=== PATIENT | male | born 1955 | race Caucasian/White ===

== ENCOUNTER 2016-10-17 12:54 | Emergency (ER) | payer OTHER ==
[~2016-10-17 12:54] MED LIST: GEMFIBROZIL600 MG PO; LOVAZA1 GM PO; PERCOCET 325 MG1 TA2 PO; PRAVACHOL10 MG PO; PRAVASTATIN SOD80 MG PO; PRINIVIL 5MG5 MG PO; ZETIA10 MG PO
[2016-10-17] MEDS ORDERED: DOXYCYCLINE HY100 M2 PO (14:14)
[2016-10-17 14:15] VITALS: BP 130/80
--- NOTE | 2016-10-17 14:16 | ED GENERAL ADULT ---
History of Present Illness General Chief Complaint: Foot or Ankle Injury Stated Complaint: PT HAS A PIECE OF GLASS IN THE LT FOOT Source: patient Exam Limitations: no limitations Vital Signs & Intake/Output Vital Signs & Intake/Output Vital Signs Date Time Temp Pulse Resp B/P B/P Pulse O2 O2 Flow FiO2 Mean Ox Delivery Rate 10/17 1415 97.4 70 20 130/80 98 Room Air 10/17 1325 98 Room Air 10/17 1259 97.3 69 20 134/74 97 Room Air Allergies Coded Allergies: NO KNOWN ALLERGIES (07/14/11) Reconcile Medications Doxycycline Hyclate 100 MG CAPSULE 1 CAP PO BID FB IN FOOT Gemfibrozil 600 MG TABLET 1 TAB PO BID HYPERTRIGLYCERIDEMIA (Reported) [id number]-[id number] Ethyl Esters (Lovaza) 1 GRAM CAPSULE 2 CAP PO BID HYPERTRIGLYCERIDEMIA (Reported) Pravastatin Sodium 80 MG TABLET 1 TAB PO DAILY CHOLESTEROL (Reported) Triage Note: PT PRESENTS TO ER C/O OF LEFT FOOT PAIN. PT STATES SHE HAS A PIECE OF GLASS STUCK IN HIS FOOT. Triage Nurses Notes Reviewed? yes Onset: Abrupt Duration: day(s): Timing: recent history HPI: 10/17/16 1:30 PM 61-year-old man presents to the emergency department for foreign body in the left heel. The patient states that he was walking barefoot and there was broken glass last night and he stepped on a piece and it went into his left heel. His who is a nurse tried to remove it but he still feels a foreign body sensation and pain. The onset of the symptoms were abrupt. The duration was approximately 12 hours prior to arrival. The severity was significant as her symptoms required him to come to the emergency department for care. He has associated pain and foreign body sensation to the left heel. Past History Travel History Traveled to [place] past 21 day No Medical History Any Pertinent Medical History? see below for history Cardiovascular: hyperlipidemia, HTN- off meds for htn Surgical History Surgical History: non-contributory Psychosocial History What is your primary language Turkmen Tobacco Use: Never used Family History Hx Contributory? No Review of Systems Review of Systems Constitutional: Reports: no symptoms. EENTM: Reports: no symptoms. Respiratory: Reports: no symptoms. Cardiovascular: Reports: no symptoms. GI: Reports: no symptoms. Genitourinary: Reports: no symptoms. Musculoskeletal: Reports: no symptoms. Skin: Reports: see HPI. Neurological/Psychological: Reports: no symptoms. Hematologic/Endocrine: Reports: no symptoms. Physical Exam Physical Exam General Appearance: well developed/nourished, alert, awake Head: normal appearance Eyes: Bilateral: normal appearance, PERRL, EOMI. Ears, Nose, Throat: normal ENT inspection Neck: normal inspection Respiratory: no respiratory distress Peripheral Pulses: 4+ dorsalis pedis (L) Back: normal range of motion Extremities: tenderness Neurologic/Psych: no motor/sensory deficits, awake, alert, oriented x 3 Skin: PUNCTURE WOUND LEFT HEEL Core Measures ACS in differential dx? No CVA/TIA Diagnosis: No Severe Sepsis Present: No Septic Shock Present: No Progress Differential Diagnoses I considered the following diagnoses in my evaluation of the patient: [Foreign body, puncture wound] Plan of Care: Warm soaks. Antibiotics as directed. Follow-up with the shuttle truck driver or call Dr. Rosenthal if any symptoms remain in 7-10 days. Initial ED EKG: none Departure Departure Disposition: HOME OR SELF CARE Condition: Stable Clinical Impression Primary Impression: Foreign body in left foot Secondary Impressions: Puncture wound Referrals: KASSIDY ROBLEDO,BREANA Handy (PCP/Family) Additional Instructions: WARM SOAKS TAKE THE ANTIBIOTICS CALL DR ROSENTHAL OR FOLLOW UP WITH THE SERVICE RIG OPERATOR IF NOT ALL BETTER IN 10 DAYS [phone] Departure Forms: Customer Survey General Discharge Information Prescriptions: Current Visit Scripts Doxycycline Hyclate 1 CAP PO BID #14 CAP Comments Procedure-foreign body removal left heel Ultrasound was first performed using the high-frequency probe. No foreign body was visualized. There was a dime sized area of excoriation at the puncture wound entrance site. The patient stated this was where the foreign body was felt. The area was cleaned with Betadine. The area was infiltrated with 3 mL of lidocaine 1% without epinephrine. The overlying scab was removed, small fragments were returned with the removal of the scab. The underlying area was probed with a needle and visually explored , the superficial epidermis and subcuticular fat was examined no foreign body was identified other than the superficial fragments that had initially been returned. Because the possibility of retained foreign body remained no suture was placed. Bacitracin and a sterile dressing was applied. The patient was instructed to keep the dressing on for 48 hours, then perform warm soaks daily for the next week. Doxycycline was given for 7 days. He was told to return if worse and that he could call me should he have any questions. Critical Care Note Critical Care Note Critical Care Time: non-applicable
== END 2016-10-17 14:16 ==
LOC: ERH 12:54
DX: S90.852A Superficial foreign body, left foot, initial encounter (principal); W25.XXXA Contact with sharp glass, initial encounter; Y92.9 Unspecified place or not applicable; Y93.9 Activity, unspecified